=== PATIENT | male | born 1945 | race Caucasian/White ===

== ENCOUNTER → 2019-06-05 | Outpatient (CLI) | payer MEDICARE ==
[~2019-06-05] MED LIST: ASCO250T PO; ASPI325T8 PO; ATEN50TA PO; ATOR40TA59 PO; BUDE10.2 IH; CALC600T4 PO; CYAN1TAB50 SL; FAMO20TA5 PO; FEXO180T16 PO; HYDR50TA6 PO; LISI-130 PO; LORA10TA3 PO; MELA3TAB56 PO; OMEG1CAP28 PO; OMEP20TA8 PO; POTA20TA82 PO; VENTOLIN HFA18 GM INH
--- NOTE | 2019-06-05 09:14 | EKG ---
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
[2019-06-05 09:37] LABS: BASO # 0.1 x10^3/uL (0.0-0.2); BASO % 1 % (0-3); EOS # 0.1 x10^3/uL (0.0-0.7); EOS % 2 % (0-3); HEMATOCRIT 46.1 % (39.0-53.0); HEMOGLOBIN 15.8 g/dL (13.0-17.5); LYMPH # 1.2 x10^3/uL (1.0-4.8); LYMPH % 23 % (24-48); MEAN CORPUSCULAR HEMOGLOBIN 33 pg (25-35); MEAN CORPUSCULAR HGB CONC 34 g/dL (31-37); MEAN CORPUSCULAR VOLUME 96 fL (79-100); MONO # 0.5 x10^3/uL (0.0-1.1); MONO % 11 % (0-9); NEUT # 3.3 x10^3/uL (1.8-7.7); NEUT % 64 % (31-73); PLATELET COUNT 172 x10^3/uL (140-400); RED BLOOD COUNT 4.82 x10^6/uL (4.30-5.70); RED CELL DISTRIBUTION WIDTH 13.3 % (11.5-14.5); WHITE BLOOD COUNT 5.2 x10^3/uL (4.0-11.0)
[2019-06-05 09:40] LABS: ALBUMIN 3.8 g/dL (3.4-5.0); CALCIUM 8.6 mg/dL (8.5-10.1); POTASSIUM 3.8 mmol/L (3.5-5.1)
[2019-06-05 09:55] LABS: PROTHROMBIN TIME PATIENT 13.7 SEC (11.7-14.0)
--- NOTE | 2019-06-05 10:00 | NUR ---
Dr Meade reviewed patient's EKG. No further orders. Also, patient states his primary Dr Harris gave him medical clearance. Left message with Dr Harris's nurse for clearance note.
[2019-06-05 10:18] LABS: BILIRUBIN,URINE NEGATIVE (NEG); CLARITY,URINE CLEAR; COLOR,URINE YELLOW; NITRITE,URINE NEGATIVE (NEG); PH,URINE 7.5; PROTEIN,URINE NEGATIVE (NEG-TRACE)
[2019-06-05 10:47] LABS: SQUAMOUS EPITHELIAL CELL,UR OCC /LPF
[2019-06-05 10:48] LABS: RBC,URINE 0 /HPF (0-2)
[2019-06-05 10:49] LABS: BACTERIA,URINE 0 /HPF (0-FEW); WBC,URINE 0 /HPF (0-4)
--- NOTE | 2019-06-06 07:51 | RAD ---
CHEST PA LATERAL History: Wheezing. Presurgical evaluation for knee replacement. Comparison: None. Findings: Hyperinflation. Patchy left basilar opacity. Normal heart size. No pneumothorax. 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 No pleural effusion. Deformity of the right inferior scapula, likely on a posttraumatic basis. Bilateral acromioclavicular DJD. Chronic right-sided rib fractures. Impression: 1. Hyperinflation. 2. Patchy left basilar opacity, likely subsegmental atelectasis. 3. Deformity of the right inferior scapula, likely related to prior trauma. If persistent clinical concern dedicated imaging can further evaluate. Electronically signed by: Chrali Pena DO (06/06/2019 7:49 AM) [facility]
--- NOTE | 2019-06-06 10:14 | NUR ---
Faxed pretesting results to Dr Harris and Dr Bacon. Patient will need pulmonary clearance. Patient has an appt 06/07 @ 5212 with MORGUE LIBRARIAN @ Dr Shanks pulmonology office. Notified patient and Dr Harris's office of the above.
--- NOTE | 2019-06-11 17:49 | NUR ---
PATIENT'S PULMONARY CLEARANCE NOTES BY ROLLY MORALES WAS REVIEWED BY , ANESTHESIOLOGIST PER LULU IRAHETA RN AT 1140 06/11/2019 AND WAS OKAY WITH HIM, NO FURTHER ORDER.
== END | disposition home or self-care (01) ==
LOC: SURGPAT 08:40
PROVIDERS: ATTEND Orthopaedic Surgery
DX: Z01.818 Encounter for other preprocedural examination (principal); M17.11 Unilateral primary osteoarthritis, right knee; J98.4 Other disorders of lung; M95.8 Other specified acquired deformities of musculoskeletal system; R94.31 Abnormal electrocardiogram [ECG] [EKG]; I10 Essential (primary) hypertension; Z88.8 Allergy status to other drugs, medicaments and biological substances
CPT/HCPCS: 36415; 71046; 80048; 81001; 82040; 82306; 85025; 85610; 85651; 85730; 87641; 93005

== ENCOUNTER 2019-06-11 08:40 | Inpatient (IN) | payer MEDICARE ==
[~2019-06-11] VITALS: Ht 170.2 cm; Wt 106.1 kg
[2019-06-11] MEDS ORDERED: ATEN50TA PO (16:35)
[2019-06-11] MEDS ORDERED: ATOR40TA59 PO (16:35)
[2019-06-11] MEDS ORDERED: VENTOLIN HFA18 GM INH (16:35)
[2019-06-11] MEDS ORDERED: POTA20TA82 PO (16:35)
[2019-06-11] MEDS ORDERED: FEXO180T16 PO (16:35)
[2019-06-11] MEDS ORDERED: BUDE10.2 IH (16:35)
[2019-06-11] MEDS ORDERED: LORA10TA3 PO (16:35)
[2019-06-11] MEDS ORDERED: HYDR50TA6 PO (16:35)
[2019-06-11] MEDS ORDERED: LISI-130 PO (16:35)
[2019-06-11] MEDS ORDERED: ASPI325T8 PO (16:35)
[2019-06-11] MEDS ORDERED: MELA3TAB56 PO (16:35)
[2019-06-11] MEDS ORDERED: FAMO20TA5 PO (16:35)
[2019-06-11] MEDS ORDERED: OMEP20TA8 PO (16:35)
[2019-06-11] MEDS ORDERED: ASCO250T PO (16:35)
[2019-06-11] MEDS ORDERED: OMEG1CAP28 PO (16:35)
[2019-06-11] MEDS ORDERED: CYAN1TAB50 SL (16:35)
[2019-06-11] MEDS ORDERED: CALC600T4 PO (16:36)
[2019-06-12] MEDS ORDERED: ACETAMINOPHEN 500 MG TABLET PO PRN (06:00)
[2019-06-12] MEDS ORDERED: MORPHINE SULFATE 5 MG, KETOROLAC 30MG VIAL 30 MG, ROPIVacaine 0.5% PF 60 ML, EPINEPHrin... INT ART ONE ×5 (06:00)
[2019-06-12] MEDS ORDERED: TRANEXAMIC ACID 1,000 MG in IV NS 50ML -- 1ST BAG INJ ONE (06:00)
[2019-06-12] MEDS ORDERED: MELOXICAM 7.5 MG TABLET PO PRN (06:00)
[2019-06-12] MEDS ORDERED: GABAPENTIN 300 MG CAPSULE. PO PRN (06:00)
[2019-06-12] MEDS ORDERED: ONDANSETRON PF 4 MG/2 ML VIAL. IV PRN (07:00)
[2019-06-12] MEDS ORDERED: LIDOCAINE 1% PF 2 ML VIAL. ID PRN (07:00)
[2019-06-12] MEDS ORDERED: ceFAZolin 2GM PREMIX 2 GM/50 ML BAG IV ONE (07:00)
[2019-06-12] MEDS ORDERED: PROCHLORPERAZINE 10 MG/2 ML VIAL. IV PRN (07:00)
[2019-06-12] MEDS ORDERED: fentaNYL PF VIAL 100 MCG/2 ML VIAL IV PRN ×2 (07:00→10:00)
[2019-06-12] MEDS ORDERED: IV RINGERS,LACTATED 1000ML 1,000 ML IV SCH (07:00)
[2019-06-12] MEDS ORDERED: TRANEXAMIC ACID 1,000 MG in IV NS 50ML -- 2ND BAG INJ ONE (08:00)
[2019-06-12] MEDS ORDERED: LIDOCAINE 2% PF 5 ML VIAL. ONE (09:20)
[2019-06-12] MEDS ORDERED: fentaNYL PF VIAL 100 MCG/2 ML VIAL ONE (09:20)
[2019-06-12] MEDS ORDERED: ROCURONIUM 50 MG/5 ML VIAL. ONE (09:20)
[2019-06-12] MEDS ORDERED: PROPOFOL 20 ML IV ONE (09:20)
[2019-06-12] MEDS ORDERED: ONDANSETRON PF 4 MG/2 ML VIAL. ONE (09:21)
[2019-06-12] MEDS ORDERED: FAMOTIDINE 20 MG/2 ML VIAL ONE (09:21)
[2019-06-12] MEDS ORDERED: DEXAMETHASONE SOD PHOS 4 MG/ML VIAL ONE (09:21)
[2019-06-12] MEDS ORDERED: IV NORMAL SALINE 1000ML BAG 1,000 ML IV SCH (09:57)
[2019-06-12] MEDS ORDERED: PROCHLORPERAZINE 5 MG TABLET. PO PRN (10:00)
[2019-06-12] MEDS ORDERED: MORPHINE SULFATE 2 MG/ML VIAL. IV PRN (10:00)
[2019-06-12] MEDS ORDERED: CALCIUM CARBONATE 500 MG TAB.CHEW PO PRN (10:00)
[2019-06-12] MEDS ORDERED: 0.9 % SODIUM CHLORIDE 10 ML DISP.SYRIN. IV PRN (10:00)
[2019-06-12] MEDS ORDERED: diphenhydrAMINE 50 MG/ML VIAL IV PRN (10:00)
[2019-06-12] MEDS ORDERED: DEXTROSE 50% 25 GM / 50ML DISP.SYRIN. IV PRN (10:00)
[2019-06-12] MEDS: ACETAMINOPHEN 500 MG TABLET PO SCH (10:08)
[2019-06-12] MEDS: MELOXICAM 7.5 MG TABLET PO SCH (10:09)
[2019-06-12 10:10] LABS: PROTHROMBIN TIME PATIENT 13.5 SEC (11.7-14.0)
--- NOTE | 2019-06-12 10:53 | HP ---
ADMIT DATE: 06/12/2019 CHIEF COMPLAINT: Right knee pain. HISTORY OF PRESENT ILLNESS: The patient is a 74-year-old male with longstanding right knee pain severely affecting his activities of daily living, underwent a previous arthroscopy with Dr. Fernández which did not help him at all, previous cortisone shot only lasted about a month and his most recent shot did not help at all. We had talked about the possibility of viscosupplementation, but he wants more definitive treatment as discussed at our previous clinic meeting. PAST MEDICAL HISTORY: Hypertension, hyperlipidemia, COPD, and sleep apnea. PAST SURGICAL HISTORY: Recent cataract surgery. FAMILY HISTORY: Both mother and father , no significant health problems. SOCIAL HISTORY: He is a previous smoker, quit over 10 years ago. Occasional alcohol consumption. Negative drug use. MEDICATIONS: List is reviewed including atenolol, atorvastatin, Symbicort, omeprazole as well as multivitamin, cranberry medicine for leg cramps, melatonin, vitamin B12, potassium, loratadine, aspirin, calcium chloride, fish oil, fiber. ALLERGIES: INCLUDE TRAMADOL, WHICH GIVE HIM A RASH. REVIEW OF SYSTEMS: Significant only for the ongoing severe right knee pain, unresponsive to nonoperative treatment and the recent cataract surgery. He has no chest pain, shortness of breath, focal weakness, numbness or tingling. Vision is improved since the cataract surgery. No other fever, chills or constitutional symptoms at all. PHYSICAL EXAMINATION: VITAL SIGNS: Height 5 feet 7 inches, weight 234, BMI 36.6. Vital signs per admission sheet. HEENT: Atraumatic, normocephalic. HEART: Regular rate and rhythm. LUNGS: Clear to auscultation bilaterally. ABDOMEN: Benign. EXTREMITIES: Examination of the right knee shows minimal flexion contracture on the right. Full motion on the left knee. Normal motion and stability of bilateral hips and ankles. Gait is antalgic. IMAGING: X-rays show tricompartmental degenerative changes in the right knee, [id number]. IMPRESSION: Degenerative joint disease, right knee. TREATMENT PLAN: I previously discussed with him risks, benefits, postoperative course of total knee arthroplasty. He wishes to proceed with more definitive treatment after failing arthroscopy activity modification, previous injections and understands the possibility of infection, premature wear or loosening, continued pain, nerve or blood vessel damage, medical or other anesthetic complications among others and he will undergo a right total knee arthroplasty today with [facility] admission to follow. KRYSTLE LUX MD DR: NITA/mili JOB#: [id number] / [id number]
[2019-06-12] MEDS ORDERED: KETAMINE HCL IN NACL, ISO-OSM 50 MG/5 ML SYRINGE ONE (11:11)
[2019-06-12] MEDS ORDERED: ePHEDrine PF IN SALINE 50 MG/10 ML SYRINGE. IV ONE (11:14)
[2019-06-12] MEDS ORDERED: LIDOCAINE 2% TOPICAL JELLY 5GM TUBE. TP ONE (11:19)
[2019-06-12] MEDS ORDERED: HYDROmorphone 2 MG/ML VIAL ONE (11:36)
[2019-06-12] MEDS ORDERED: VANCOMYCIN 1 GM VIAL. ONE (12:00)
[2019-06-12] MEDS: ONDANSETRON PF 4 MG/2 ML VIAL. IV SCH ×3 (12:00→23:43)
[2019-06-12] MEDS: ONDANSETRON ODT 4 MG TAB.RAPDIS. PO SCH ×3 (12:00→23:44)
[2019-06-12] MEDS: ALBUTEROL SULFATE 2.5 MG/3 ML NEBU. NEB SCH ×3 (12:00→19:57)
[2019-06-12] MEDS ORDERED: NON FORMULARY ITEM (Albuterol Sulfate (Ventolin Hfa Inhaler) 2 PUFF) INH SCH (12:00)
[2019-06-12] MEDS: CALCIUM CARBONATE 500 MG TABLET PO SCH (12:00)
[2019-06-12] MEDS: POTASSIUM CHLORIDE 20 MEQ TABLET.ER. PO SCH (12:00)
[2019-06-12] MEDS: ATENOLOL 50 MG TABLET. PO SCH (12:00)
[2019-06-12] MEDS: FAMOTIDINE 20 MG TABLET. PO SCH (12:00)
[2019-06-12] MEDS: CETIRIZINE HCL 10 MG TABLET. PO SCH (12:00)
[2019-06-12] MEDS ORDERED: VANCOMYCIN 1 GM VIAL. TP ONE (12:20)
[2019-06-12] MEDS ORDERED: NEOSTIGMINE METHYLSULFATE 5 MG/5 ML SYRINGE. ONE (12:39)
[2019-06-12] MEDS ORDERED: GLYCOPYRROLATE 1 MG/5 ML VIAL. ONE (12:40)
[2019-06-12] MEDS ORDERED: SEVOFLURANE > 120 MINUTES. IH ONE (13:02)
--- NOTE | 2019-06-12 13:36 | PDOC4 ---
Operative Note Operative Note Date of surgery: 06/12/2019 Preoperative diagnosis: Degenerative joint disease right knee` Postoperative diagnosis: Same Operative procedure: Right total knee arthroplasty Surgeon: Jordi Assist: Joey Carson nurse practitioner Anesthesia: Gen. Estimated blood loss: 50 mL Complications: None Specimens: Cartilage surfaces to pathology Operative indications: Please see my orthopedic clinic note and preoperative history and physical for detailed operative indications Operative text: Patient was identified procedure verified patient placed in the supine position operating table after adequate amounts of general anesthesia were administered the right lower extremity was prepped and draped in standard sterile fashion with a thigh tourniquet. After timeout was performed patient procedure identified and verified the right lower extremity was exsanguinated by Esmarch bandage tourniquet inflated to 300 mm mercury a midline incision was made with a medial parapatellar approach patella was everted fat pad was excised femur was drilled for an intramedullary cutting guide with a standard distal cut. Femur was sized at a size 5 anterior posterior lateral chamfer cuts were then made PCL was preserved menisci were excised along with the anterior cruciate ligament and the extra medullary tibial cutting guide was placed and pinned tibial cut was made bone excised and a size 5 tibial component was pinned in place after insuring balancing in flexion extension varus valgus. She retaining femoral component was selected with an 11 mm spacer which again showed excellent ligament balance full range of motion excellent stability patella was repaired with the resurfacing guide lateral patellar bone was removed to prevent impingement and a 32 mm patellar trial component was drilled and medialized showing excellent tracking. Trial components removed thorough irrigation carried out normal saline solution bleeding points controlled by electrocautery and the following [employer] components were cemented in place with polymethylmethacrylate cement. A size 5 journey nonporous tibial baseplate a si ze 5 cobalt-chromium cruciate retaining journey 2 femoral component and an 11 mm insert was temporarily placed while the 32 mm patella resurfacing round patellar component was likewise cemented excess cement was removed and following additional trialing an 11 mm articular insert was snapped in place following thorough irrigation with normal saline solution Hemovac drain and pain catheter were placed pain catheter mixture was injected throughout the joint surface 1 g of powdered vancomycin was sprinkled throughout the joint capsule and closure accomplished with #5 Ethibond suture in an interrupted fashion #1 strata fix PDS in running fashion subcutaneous closure with buried Vicryl suture and subcuticular 3-0 strata fix Monocryl. A joy drain with Acticoat was placed toes were noted be warm pink find deflation of tourniquet patient was returned to recovery room stable condition having tolerated procedure well. Joey Carson nurse practitioner was present for the procedure and assisted in the positioning prepping draping retraction and skin closure. KRYSTLE LUX MD Jun 12, 2019 13:36
[2019-06-12] MEDS: fentaNYL PF VIAL 100 MCG/2 ML VIAL IV PRN ×2 (13:37→14:10)
--- NOTE | 2019-06-12 14:10 | RAD ---
EXAM: Right knee, 2 views. HISTORY: Arthroplasty. COMPARISON: None. FINDINGS: 2 views of the right knee are obtained. There is a right knee arthroplasty in expected position. There is surrounding soft tissue gas, joint fluid and a surgical drain due to recent surgery. IMPRESSION: Right knee arthroplasty in expected position. Electronically signed by: Preethi Garcia MD (06/12/2019 2:07 PM) [facility]
[2019-06-12 14:45] VITALS: BP 143/82
[2019-06-12 15:15] VITALS: BP 140/84
[2019-06-12] MEDS: SENNOSIDES/DOCUSATE 8.6/50MG TABLET. PO SCH (15:22)
[2019-06-12] MEDS: hydroCHLOROthiazide 25 MG TABLET PO SCH (15:22)
[2019-06-12] MEDS: LISINOPRIL 20 MG TABLET PO SCH (15:22)
[2019-06-12] MEDS: oxyCODONE IR 5 MG TABLET PO PRN ×2 (15:23→19:44)
[2019-06-12] MEDS: PANTOPRAZOLE 40 MG TABLET.DR. PO SCH (15:26)
--- NOTE | 2019-06-12 15:45 | NUR ---
Patient arrived to the floor around 1445 from PACU. Family at bedside. Pain around 4. Dressing on RLE dry/intact. Hemovac unclamped and in place. IAC in place. IV infusing properly in right hand. Patient has chronic congestion and has a productive cough but swallows what he is able to spit up. He states he usually drinks 1-2 shots of liquor a day but does not need/want any while he is here. Family present for conversation and aware. He has a walker with a basket/seat and was recommended to get a front wheel walker upon discharge from here or [place], which is where he wants to go from here at discharge. Patient and family oriented to room. NO concerns noted at this time. Patient on room air. Medications addressed and reviewed. Will continue to monitor.
[2019-06-12] MEDS ORDERED: WARFARIN 7.5 MG TABLET. PO ONE (16:00)
[2019-06-12] MEDS: FERROUS SULFATE 325 MG TABLET. PO SCH (16:17)
[2019-06-12] MEDS: KETOROLAC 30MG VIAL 30 MG, BUPIVACAINE MPF 0.25% 20 ML, EPINEPHrine 0.5 MG in TOTAL VOL... INT ART SCH ×3 (17:31→19:53)
--- NOTE | 2019-06-12 18:36 | NUR ---
This nurse went to start patients IAC but it states it is occluded. Tried multiple times and tried to change patients position to hopefully get it to start without success. Will notify oncoming shift to try after patient gets up and moves around to hopefully adjust the IAC enough that it will infuse.
[2019-06-12 19:20] VITALS: BP 122/70
[2019-06-12] MEDS: ATORVASTATIN CALCIUM 40 MG TABLET. PO SCH (19:43)
--- NOTE | 2019-06-12 19:53 | NUR ---
Attempted to run IAC again, infusion would not infuse. IAC stopped and documented non administered.
[2019-06-12] MEDS: BUDESONIDE 0.5 MG/2 ML NEBU. NEB SCH (19:57)
[2019-06-12] MEDS ORDERED: NON FORMULARY ITEM (Budesonide/Formoterol Fumarate (Symbicort 160-4.5 Mcg Inhaler) 1 PUFF) IH SCH (21:00)
[2019-06-12 23:40] VITALS: BP 126/76
--- NOTE | 2019-06-13 00:10 | NUR ---
Patient up to restroom x 2 voids 100cc at a time. 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 Patient very anxious and stressing on insurance only giving him until . Patient states "I read my book and know my exercises well." Patient attempts to do leg exercises in bed and on bedside. Patient states "The only thing stopping me from fully bending my knee is the bandage." RN informed patient that dressing/bandage to stay in place until post second therapy later today. Patient continues to make unexpected movements as if to get out of bed on his own. RN informed him of need to get up with assistance. Patient states "I know!" RN informed him of need to get rest to be able to participate in therapy and not get worn out. Patient states "I won't" Patient states "I already passed 24 hours here." RN informed him that it was only ten after midnight. Patient looked outside and states " Oh! I guess I should rest." RN agreed. CPAP placed on patient and call light in reach. Bed alarm on and Patient instructed to call for assistance. Patient states "I know."
[2019-06-13] MEDS: oxyCODONE IR 5 MG TABLET PO PRN ×5 (02:45→21:33)
[2019-06-13 02:47] VITALS: BP 116/64
[2019-06-13] MEDS: ALBUTEROL SULFATE 2.5 MG/3 ML NEBU. NEB SCH ×6 (04:18→20:02)
[2019-06-13 05:00] LABS: PROTHROMBIN TIME PATIENT 14.5 SEC (11.7-14.0)
[2019-06-13] MEDS: ONDANSETRON ODT 4 MG TAB.RAPDIS. PO SCH (05:59)
[2019-06-13] MEDS: GABAPENTIN 100 MG CAPSULE. PO SCH ×3 (05:59→21:32)
[2019-06-13] MEDS: KETOROLAC 30MG VIAL 30 MG, BUPIVACAINE MPF 0.25% 20 ML, EPINEPHrine 0.5 MG in TOTAL VOL... INT ART SCH (05:59)
[2019-06-13] MEDS: PANTOPRAZOLE 40 MG TABLET.DR. PO SCH (05:59)
[2019-06-13] MEDS: ONDANSETRON PF 4 MG/2 ML VIAL. IV SCH (05:59)
[2019-06-13] MEDS ORDERED: MAGNESIUM HYDROXIDE 2,400 MG/30 ML ORAL.SUSP. PO PRN (06:00)
[2019-06-13 06:03] VITALS: BP 112/56
[2019-06-13 06:39] LABS: HEMATOCRIT 43.3 % (39.0-53.0); HEMOGLOBIN 14.6 g/dL (13.0-17.5)
--- NOTE | 2019-06-13 07:51 | PDOC ---
ORTHO PROGRESS NOTES Subjective Patient states feeling well with minimal pain. Post-op Day: 1 Procedure R TKA Vitals Vital Signs Date Time Temp Pulse Resp B/P (MAP) Pulse Ox O2 Delivery O2 Flow Rate FiO2 06/13/19 06:03 97.6 86 18 112/56 (74) 93 BiPAP/CPAP 97.6 06/12/19 13:50 10 Labs Laboratory Tests Test 06/12/19 09:48 06/13/19 04:15 Prothrombin Time 13.5 SEC (11.7-14.0) 14.5 SEC (11.7-14.0) Prothromb Time International Ratio 1.1 (0.8-1.1) 1.2 (0.8-1.1) Activated Partial Thromboplast Time 25 SEC (24-38) Hemoglobin 14.6 g/dL (13.0-17.5) Hematocrit 43.3 % (39.0-53.0) Mean Corpuscular Hemoglobin Concent 34 g/dL (31-37) Laboratory Tests Test 06/12/19 09:48 06/13/19 04:15 Prothrombin Time 13.5 SEC (11.7-14.0) 14.5 SEC (11.7-14.0) Prothromb Time International Ratio 1.1 (0.8-1.1) 1.2 (0.8-1.1) Activated Partial Thromboplast Time 25 SEC (24-38) Hemoglobin 14.6 g/dL (13.0-17.5) Hematocrit 43.3 % (39.0-53.0) Mean Corpuscular Hemoglobin Concent 34 g/dL (31-37) Notes awake and alert sitting up in chair at bedside. Assessment and Plan POD # 1 S/P Right Total Knee Arthroplasty motor and sensation intact distally dressing dry and intact PT today AUDREY JOHNSON APRN Jun 13, 2019 07:51
[2019-06-13 08:19] VITALS: BP 94/63
[2019-06-13] MEDS: LISINOPRIL 20 MG TABLET PO SCH ×2 (08:19→16:15)
[2019-06-13] MEDS: hydroCHLOROthiazide 25 MG TABLET PO SCH ×2 (08:19→16:15)
[2019-06-13] MEDS: FERROUS SULFATE 325 MG TABLET. PO SCH ×2 (08:20→16:16)
[2019-06-13] MEDS: MULTIVITAMIN with MINERAL TABLET. PO SCH (08:21)
[2019-06-13] MEDS: SENNOSIDES/DOCUSATE 8.6/50MG TABLET. PO SCH (08:21)
[2019-06-13] MEDS: CETIRIZINE HCL 10 MG TABLET. PO SCH (08:21)
[2019-06-13] MEDS: ATENOLOL 50 MG TABLET. PO SCH ×2 (08:21→16:15)
[2019-06-13] MEDS: FAMOTIDINE 20 MG TABLET. PO SCH (08:21)
[2019-06-13] MEDS: CYANOCOBALAMIN (VITAMIN B-12) 1,000 MCG TABLET. PO SCH (08:21)
[2019-06-13] MEDS: CALCIUM CARBONATE 500 MG TABLET PO SCH (08:21)
[2019-06-13] MEDS: POTASSIUM CHLORIDE 20 MEQ TABLET.ER. PO SCH (08:21)
[2019-06-13] MEDS: ASPIRIN 325 MG TABLET PO SCH (08:21)
[2019-06-13] MEDS ORDERED: NON FORMULARY ITEM (Fexofenadine Hcl 180 MG) PO SCH (09:00)
[2019-06-13] MEDS: BUDESONIDE 0.5 MG/2 ML NEBU. NEB SCH ×2 (09:14→20:02)
--- NOTE | 2019-06-13 10:58 | NUR ---
Pharmacy Warfarin Dosing Note S:Pharmacy consulted to assist with anticoagulation therapy started 06/11/19 with target INR: 1.6 - 2.5 O:ROSANNA NASH is a 74 year old M with TKA LABS: Last INR: 1.2 Last HGB: 14.6 Last HCT: 43.3 Last PLT: - Last dose of 7.5 mg given on 06/12/19 at 1522 Vitamin K given: N A:INR of 1.2 is below desired range. Target range for this patient is: 1.6 - 2.5 P: Warfarin dose: 5 mg Today at 1600 Bridge Therapy: none Next INR due tomorrow Pharmacy anticoagulation service will continue to follow. Rocio Broderick [facility], 06/13/19 [id number]
[2019-06-13] MEDS ORDERED: ONDANSETRON PF 4 MG/2 ML VIAL. IV PRN (12:00)
[2019-06-13] MEDS ORDERED: ONDANSETRON ODT 4 MG TAB.RAPDIS. PO PRN (12:00)
--- NOTE | 2019-06-13 14:57 | NUR ---
Hemovac & IAC discontinued per order without difficulty tolerated procedure well, cleansed with swabstick & dressing applied to both sites
[2019-06-13] MEDS ORDERED: BISACODYL 10 MG SUPP.RECT. PR PRN (16:00)
[2019-06-13] MEDS ORDERED: WARFARIN 5 MG TABLET. PO ONE (16:00)
--- NOTE | 2019-06-13 16:00 | NUR ---
Voiding frequently during day states doesn't feel completely empty, PVR >438cc, straight catheter preformed without difficulty although patient anxious, 400 cc of clear yellow urine returned, informed to also follow up with PCP, aldo he developed this issue 6 months ago, up to bedside chair, ice on knee, elevated, call light within reach
[2019-06-13 16:12] VITALS: BP 129/73
[2019-06-13] MEDS: ACETAMINOPHEN 500 MG TABLET PO SCH ×2 (16:16→21:32)
[2019-06-13 17:40] VITALS: BP 146/87
[2019-06-13] MEDS: ATORVASTATIN CALCIUM 40 MG TABLET. PO SCH (21:32)
[2019-06-13] MEDS: ZOLPIDEM 5 MG TABLET. PO PRN (21:33)
[2019-06-14] MEDS: ACETAMINOPHEN 500 MG TABLET PO SCH ×4 (03:00→21:25)
[2019-06-14] MEDS: ALBUTEROL SULFATE 2.5 MG/3 ML NEBU. NEB SCH ×7 (04:00→23:50)
[2019-06-14 05:49] LABS: HEMATOCRIT 42.4 % (39.0-53.0); HEMOGLOBIN 14.4 g/dL (13.0-17.5)
[2019-06-14] MEDS: PANTOPRAZOLE 40 MG TABLET.DR. PO SCH (06:04)
[2019-06-14] MEDS: GABAPENTIN 100 MG CAPSULE. PO SCH ×3 (06:04→21:25)
[2019-06-14 06:11] VITALS: BP 119/69
[2019-06-14] MEDS: BUDESONIDE 0.5 MG/2 ML NEBU. NEB SCH ×2 (07:19→20:43)
[2019-06-14] MEDS: FERROUS SULFATE 325 MG TABLET. PO SCH ×2 (08:00→16:15)
[2019-06-14 08:30] VITALS: BP 124/65
[2019-06-14] MEDS: POTASSIUM CHLORIDE 20 MEQ TABLET.ER. PO SCH (08:43)
[2019-06-14] MEDS: MELOXICAM 7.5 MG TABLET PO SCH (08:43)
--- NOTE | 2019-06-14 08:45 | PDOC ---
PROGRESS NOTES Subjective Subjective Problems overnight: A little bit more soreness than yesterday but still pleased with his progress Objective Vital Signs Vital Signs Date Time Temp Pulse Resp B/P (MAP) Pulse Ox O2 Delivery O2 Flow Rate FiO2 06/14/19 08:30 71 124/65 (84) 06/14/19 07:20 94 Room Air 06/14/19 06:11 98.7 20 98.7 06/12/19 13:50 10 Physical Exam Tomy dressing clean dry intact good range of motion knee distal neurovascular status intact Labs Laboratory Tests Test 06/12/19 09:48 06/13/19 04:15 06/14/19 04:49 Prothrombin Time 13.5 SEC (11.7-14.0) 14.5 SEC (11.7-14.0) 19.0 SEC (11.7-14.0) Prothromb Time International Ratio 1.1 (0.8-1.1) 1.2 (0.8-1.1) 1.6 (0.8-1.1) Activated Partial Thromboplast Time 25 SEC (24-38) Hemoglobin 14.6 g/dL (13.0-17.5) 14.4 g/dL (13.0-17.5) Hematocrit 43.3 % (39.0-53.0) 42.4 % (39.0-53.0) Mean Corpuscular Hemoglobin Concent 34 g/dL (31-37) 34 g/dL (31-37) Laboratory Tests Test 06/14/19 04:49 Hemoglobin 14.4 g/dL (13.0-17.5) Hematocrit 42.4 % (39.0-53.0) Mean Corpuscular Hemoglobin Concent 34 g/dL (31-37) Prothrombin Time 19.0 SEC (11.7-14.0) Prothromb Time International Ratio 1.6 (0.8-1.1) Imaging Postop x-rays show total knee arthroplasty in excellent alignment Assessment Assessment POD# 2 total knee arthroplasty Plan Plan of Care Continue physical therapy per total knee protocol Plan rehabilitation at [place] on discharge KRYSTLE LUX MD Jun 14, 2019 08:45
[2019-06-14] MEDS: ASPIRIN 325 MG TABLET PO SCH (09:00)
[2019-06-14] MEDS: CALCIUM CARBONATE 500 MG TABLET PO SCH (09:00)
[2019-06-14] MEDS: MULTIVITAMIN with MINERAL TABLET. PO SCH (09:00)
[2019-06-14] MEDS: SENNOSIDES/DOCUSATE 8.6/50MG TABLET. PO SCH (09:00)
[2019-06-14] MEDS: FAMOTIDINE 20 MG TABLET. PO SCH (09:00)
[2019-06-14] MEDS: CYANOCOBALAMIN (VITAMIN B-12) 1,000 MCG TABLET. PO SCH (09:00)
[2019-06-14] MEDS: LISINOPRIL 20 MG TABLET PO SCH (09:00)
[2019-06-14] MEDS: ATENOLOL 50 MG TABLET. PO SCH (09:00)
[2019-06-14] MEDS: CETIRIZINE HCL 10 MG TABLET. PO SCH (09:00)
[2019-06-14] MEDS: hydroCHLOROthiazide 25 MG TABLET PO SCH (09:00)
[2019-06-14] MEDS: POLYETHYLENE GLYCOL 3350 17 GM PACKET. PO SCH (09:31)
--- NOTE | 2019-06-14 09:37 | NUR ---
Locked in computer [id number] since 832, medications re-charted
[2019-06-14] MEDS: oxyCODONE IR 5 MG TABLET PO PRN ×2 (12:49→21:26)
--- NOTE | 2019-06-14 14:39 | NUR ---
Pharmacy Warfarin Dosing Note S: Pharmacy consulted to assist with anticoagulation therapy started 06/11/19 O: ROSANNA NASH is a 74 year old M with TKA LABS: Last INR: 1.6 Last HGB: 14.4 Last HCT: 42.4 Last PLT: - Last dose of 5 mg given on 06/13/19 at 1616 Vitamin K given: N A:INR of 1.6 is within desired range. Target range for this patient is: 1.6 - 2.5 P: Warfarin dose: 3 mg Today at 1600 Bridge Therapy: none Next INR due tomorrow Pharmacy anticoagulation service will continue to follow. Rocio Broderick RPH, 06/14/19 [id number]
[2019-06-14] MEDS ORDERED: WARFARIN 3 MG TABLET. PO ONE (16:00)
[2019-06-14 17:49] VITALS: BP 116/68
[2019-06-14] MEDS: ZOLPIDEM 5 MG TABLET. PO PRN (21:25)
[2019-06-14] MEDS: ATORVASTATIN CALCIUM 40 MG TABLET. PO SCH (21:25)
--- NOTE | 2019-06-14 21:25 | NUR ---
Patient states "I don't want to be woke up for treatments or Tylenol, I want to sleep." Ambien and pain pills given with HS medication per Patient request. Respiratory aware of Patient request not to be woke up for treatments.
[2019-06-15] MEDS: ACETAMINOPHEN 500 MG TABLET PO SCH ×3 (03:00→15:31)
[2019-06-15] MEDS: ALBUTEROL SULFATE 2.5 MG/3 ML NEBU. NEB SCH ×4 (04:00→15:39)
[2019-06-15 05:05] VITALS: BP 139/70
[2019-06-15] MEDS: GABAPENTIN 100 MG CAPSULE. PO SCH ×2 (06:15→13:04)
[2019-06-15] MEDS: PANTOPRAZOLE 40 MG TABLET.DR. PO SCH (06:15)
[2019-06-15 06:54] LABS: HEMATOCRIT 42.9 % (39.0-53.0); HEMOGLOBIN 14.6 g/dL (13.0-17.5)
[2019-06-15 07:03] LABS: PROTHROMBIN TIME PATIENT 20.3 SEC (11.7-14.0)
[2019-06-15] MEDS: BUDESONIDE 0.5 MG/2 ML NEBU. NEB SCH (07:43)
[2019-06-15] MEDS: CYANOCOBALAMIN (VITAMIN B-12) 1,000 MCG TABLET. PO SCH (08:20)
[2019-06-15] MEDS: POLYETHYLENE GLYCOL 3350 17 GM PACKET. PO SCH (08:20)
[2019-06-15] MEDS: MULTIVITAMIN with MINERAL TABLET. PO SCH (08:21)
[2019-06-15] MEDS: FAMOTIDINE 20 MG TABLET. PO SCH (08:21)
[2019-06-15] MEDS: MELOXICAM 7.5 MG TABLET PO SCH (08:21)
[2019-06-15] MEDS: CALCIUM CARBONATE 500 MG TABLET PO SCH (08:21)
[2019-06-15] MEDS: oxyCODONE IR 5 MG TABLET PO PRN ×3 (08:22→15:32)
[2019-06-15] MEDS: POTASSIUM CHLORIDE 20 MEQ TABLET.ER. PO SCH (08:22)
[2019-06-15] MEDS: hydroCHLOROthiazide 25 MG TABLET PO SCH (08:22)
[2019-06-15] MEDS: CETIRIZINE HCL 10 MG TABLET. PO SCH (08:22)
[2019-06-15] MEDS: ASPIRIN 325 MG TABLET PO SCH (08:22)
[2019-06-15] MEDS: FERROUS SULFATE 325 MG TABLET. PO SCH (08:22)
[2019-06-15] MEDS: LISINOPRIL 20 MG TABLET PO SCH (08:23)
[2019-06-15] MEDS: SENNOSIDES/DOCUSATE 8.6/50MG TABLET. PO SCH (08:23)
[2019-06-15] MEDS: ATENOLOL 50 MG TABLET. PO SCH (08:24)
[2019-06-15] MEDS ORDERED: OXYC5CAP PO (11:44)
[2019-06-15] MEDS ORDERED: WARF3TAB50 PO (11:44)
--- NOTE | 2019-06-15 11:46 | SNU/HH DC ---
DISCHARGE ORDERS DISCHARGE INFORMATION: CONDITION ON DISCHARGE: Stable CODE STATUS: Code Status: Full CUSTODIAL: SNF STAY <30 DAYS: Yes POST DISCHARGE ORDERS: ACTIVITY ORDERS: Activity as tolerated WEIGHT BEARING STATUS: As tolerated BATHING ORDERS: No Tub Bath until see DIET AFTER DISCHARGE: Regular WOUND/INCISION CARE: Ice to area for comfort, Do not change dressing OTHER WOUND INSTRUCTIONS: do not change dressing; if dressing becomes saturated change dressing to on CHECKS AFTER DISCHARGE: COMMENTS: will be on coumadin for 30 days; follow facility's FOLLOW-UP: ADDITIONAL FOLLOW-UP: call [phone] for a 2 week post op appt with Dr. Bacon ANTICOAGULATION F/U NEEDED: House physician to manage coumadin ??? call [phone] TREATMENT/EQUIPMENT ORDERS: ADAPTIVE EQUIPMENT NEEDED: None Physical Therapy For: Evalulation/Treatment Occupational Therapy For: Evaluation/Treatment DISCHARGE MEDICATIONS: Home Meds Reported Medications Calcium Carbonate (CALCIUM) 600 Mg Tablet, 600 MG PO DAILY for VITAMIN , TAB 06/11/19 Hydrochlorothiazide (HYDROCHLOROTHIAZIDE TABLET) 50 Mg Tablet, 25 MG PO DAILY for DIURETIC, TAB 0 Refills 06/11/19 Aspirin (ASPIRIN) 325 Mg Tablet, 325 MG PO DAILY for VITAMIN , TAB 06/11/19 Melatonin (MELATONIN) 3 Mg Tablet, 30 MG PO QHS for SLEEP , TAB 06/11/19 Albuterol Sulfate (VENTOLIN HFA INHALER) 18 Gm Hfa.aer.ad, 2 PUFF INH Q4HRS for FOR ASTHMA, INHALER 0 Refills 06/11/19 Famotidine (FAMOTIDINE) 20 Mg Tablet, 20 MG PO DAILY for REFLUX, TAB 06/11/19 Ascorbic Acid (VITAMIN C) 250 Mg Tablet, 250 MG PO DAILY for VITAMIN , TAB 06/11/19 Omeprazole (OMEPRAZOLE) 20 Mg Tablet.dr, 20 MG PO DAILY for ACID REFLUX, TAB 06/11/19 Lisinopril (LISINOPRIL) 40 Mg Tablet, 40 MG PO DAILY for FOR HYPERTENSION, #30 TAB 0 Refills 06/11/19 [place]-3 Fatty Acids/Fish Oil (FISH OIL 1,200 MG SOFTGEL) 1 Each Capsule, 1 EACH PO DAILY for VITAMIN , CAP 06/11/19 Budesonide/Formoterol Fumarate (SYMBICORT 160-4.5 MCG INHALER) 10.2 Gm Hfa.aer.ad, 1 PUFF IH BID for BREATHING , INHALER 06/11/19 Atenolol (ATENOLOL) 50 Mg Tablet, 50 MG PO DAILY for HEART, TAB 06/11/19 Atorvastatin Calcium (ATORVASTATIN CALCIUM) 40 Mg Tablet, 40 MG PO DAILY for FOR CHOLESTEROL, #30 TAB 0 Refills 06/11/19 Fexofenadine Hcl (FEXOFENADINE HCL) 180 Mg Tablet, 180 MG PO DAILY for DAILY, TAB 06/11/19 Loratadine (LORATADINE) 10 Mg Tablet, 10 MG PO DAILY for ALLERGY , TAB 06/11/19 Potassium Chloride (POTASSIUM CHLORIDE) 20 Meq Tablet.er, 20 MEQ PO DAILY for VITAMIN , TAB.SR 06/11/19 Cyanocobalamin/Cobamamide (Vitamin B-12 5,000 Mcg Tab Sl) 1 Each Tab.subl, 1 EACH SL DAILY for VITAMIN , TAB 06/11/19 KRYSTLE BACON MD Jun 15, 2019 11:45
[2019-06-15 11:53] VITALS: BP 116/63
--- NOTE | 2019-06-15 12:08 | DS ---
DATE OF DISCHARGE: 06/15/2019 ORTHOPEDIC DISCHARGE SUMMARY DISPOSITION: care home facility. PRINCIPAL DIAGNOSIS: Degenerative joint disease, right knee. PROCEDURE: Status post right total knee arthroplasty. DISPOSITION MEDICATIONS: Include oxycodone 5 mg p.o. q.4 hours p.r.n. pain, dispensed #80, Warfarin for 28 days as directed by anticoagulation clinic. Resume other preoperative medications. Follow up with Dr. Bacon 2 weeks. ACTIVITY: Against weightbearing as tolerated, standard total knee precautions. Maintain AGUSTÍN dressing, keep intact remove only if saturated. BRIEF DESCRIPTION OF HOSPITAL COURSE: The patient underwent an uncomplicated total knee arthroplasty and remained medically stable throughout his stay. Pain overall was reasonably well controlled. Pain catheter and Hemovac drain were removed on postoperative day #1, he continued to progress through physical therapy. AGUSTÍN dressing remains intact with minimal drainage. He has good range of motion, ligament balance, tracking intact distal neurovascular status, but just due to his functional status and home environment preferred a rehab facility to which he was discharged in stable condition. KRYSTLE BACON MD DR: NITA/mili JOB#: [id number] / [id number]
--- NOTE | 2019-06-15 13:03 | NUR ---
Pharmacy Warfarin Dosing Note S:Pharmacy consulted to assist with anticoagulation therapy started 06/11/19 with target INR: 1.6 - 2.5 O:ROSANNA NASH is a 74 year old M with TKA Allergies:tramadol Height: 5 feet, 7 inches Weight: 106.1kg LABS: Last INR: 1.8 Last HGB: 14.6 Last HCT: 42.9 Last PLT: - Ongoing Drug Interactions: A:INR within desired Range. Target Range for this patient is: 1.6 - 2.5 P: Warfarin dose: 3 mg will be given today prior to discharge. Give 3 mg daily. Draw INR on 06/18/19, and request attending physician to dose warfarin for a goal INR 1.6 - 2.5 through end of therapy 07/09/19 (4 weeks of therapy). Indication for warfarin is prevention of VTE after major joint surgery. Rocio Broderick RPH, 06/15/19 4746
[2019-06-15] MEDS ORDERED: WARFARIN 3 MG TABLET. PO ONE (15:00)
--- NOTE | 2019-06-15 16:37 | NUR ---
REVIEWED DISCHARGE INSTRUCTIONS WITH PATIENT AND THE RN AT THE OTHER FACILITY. REVIEWED COUMADIN-LENGTH OF TIME AND MONITORING, RESTRICTIONS TO ACTIVITIES OF DAILY LIVING SUCH BATHING DRIVING MEDICATIONS ESPECIALLY PAIN MEDICATIONS AND INCISIONAL CARE AND FOLLOW UP. DISMISSED TO [facility].
== END 2019-06-15 16:52 | DRG 470 ==
LOC: UNDOADMIN 08:40 → OPSVCIP 08:40 → 4 SOUTHEST 06-12 14:23
PROVIDERS: ADMIT Orthopaedic Surgery; ATTEND Orthopaedic Surgery
PROC: 0SRC0J9 Replacement of Right Knee Joint with Synthetic Substitute, Cemented, Open Approach (ICD-10-PCS; principal; 2019-06-12 10:15)
DX: M17.11 Unilateral primary osteoarthritis, right knee (principal); E78.5 Hyperlipidemia, unspecified; I10 Essential (primary) hypertension; J44.9 Chronic obstructive pulmonary disease, unspecified; Z87.891 Personal history of nicotine dependence; Z96.651 Presence of right artificial knee joint; Z79.899 Other long term (current) drug therapy
CPT/HCPCS: 36415; 73560; 85014; 85018; 85610; 85730; 86850; 86900; 86901; 94640; 94760; A7015; C1713; J0171; J0696; J1100; J1170; J1200; J1885; J2001; J2270; J2405; J2704; J2710; J2795; J3010; J3370; J3490; J7030; J7120; J7613; J7626; 97116; 97150; 97530; 97535; C1769; G0378